=== PATIENT | male | born 1950 | race African-American/Black ===

== ENCOUNTER 2019-03-07 14:27 | Emergency (ER) | payer OTHER ==
[2019-03-07 14:40] VITALS: BP 143/98; PULSE 80; TEMP 98; BMI 28.6
[2019-03-07] MEDS ORDERED: DIPHTH,PERTUSS(ACELL),TET 0.5 ML DISP.SYRIN IM ONE ×2 (15:20→15:26)
[2019-03-07] MEDS ORDERED: IBUPROFEN 600 MG TABLET (FP) PO ONE ×2 (15:20→15:25)
--- NOTE | 2019-03-07 15:20 | PDOC ---
History of Present Illness - General Chief Complaint: Laceration Stated Complaint: LAC LEFT THUMB Time Seen by Provider: 03/07/19 14:45 History Source: Patient - History of Present Illness Initial Comments: 03/07/19 15:33 Chief complaint: Thumb injury Patient is a 68-year-old male without significant medical problems who states that he cut his right thumb with a saw while cutting tile. Patient does not know when his last tetanus was. GENERAL/CONSTITUTIONAL: No fever, weakness. dizziness HEAD, EYES, EARS, NOSE AND THROAT: No change in vision. No ear pain or discharge. No sore throat. CARDIOVASCULAR: No chest pain RESPIRATORY: No shortness of breath or cough GASTROINTESTINAL: No pain, nausea, vomiting, diarrhea or constipation GENITOURINARY: No dysuria MUSCULOSKELETAL: No neck or back pain SKIN: No rash, + thumb, right NEUROLOGIC: No headache, vertigo, loss of consciousness, or loss of sensation. GENERAL: The patient is awake, alert, and fully oriented, in no acute distress. HEAD: Normal with no signs of trauma. EYES: Pupils equal, round and reactive to light, sclera anicteric, conjunctiva clear. ENT: pharynx: no erythema, no exudate, uvula midline NECK: supple CHEST: clear, nontender, rr ABD: soft, nontender BACK: no tenderness or signs of injury EXTREMITIES: Right thumb with circular partial flap laceration, 2 cm on dorsum MCP able to fully flex and extend, neurovascular intact. Rest of extremities, normal range of motion, no edema. NEUROLOGICAL: Normal speech, normal gait. SKIN: Warm, Dry 03/07/19 15:50 Past History - Past Medical History Allergies/Adverse Reactions: Allergies Allergy/AdvReac Type Severity Reaction Status Date / Time No Known Allergies Allergy Verified 03/07/19 14:40 Home Medications: Ambulatory Orders Famotidine [Pepcid -] 20 mg PO BID #20 tablet 03/18/13 No Home Medications 0 dose .ROUTE UTDICT 03/18/13 Cephalexin [Keflex] 500 mg PO QID #28 capsule 03/07/19 COPD: No - Psycho Social/Smoking Cessation Hx Smoking Status: No Smoking History: Never smoked Number of Cigarettes Smoked Daily: 0 Hx Alcohol Use: No Substance Use Type: None *Physical Exam - Vital Signs Last Vital Signs Temp Pulse Resp BP Pulse Ox 98 F 80 18 143/98 100 03/07/19 14:35 03/07/19 14:35 03/07/19 14:35 03/07/19 14:35 03/07/19 14:35 Procedures - Laceration/Wound Repair Right Finger 1st digit Wound Length: to 2.5 cm Wound Explored: clean Wound's Depth, Shape: flap Irrigated w/ Saline: Yes Betadine Prep: Yes Anesthesia: 2% Lidocaine Wound Debrided: minimal Wound Repaired With: Sutures Suture Size/Type: 5:0 Number of Sutures: 8 Layer Closure: No Sterile Dressing Applied: Yes Splint Applied: Yes Sling Applied: No Medical Decision Making - Medical Decision Making 03/07/19 17:16 68-year-old male with no significant medical problems who was wearing a glove when he cut his right thumb on the dorsum MCP with a saw while cutting tile. Patient has flap injury, able to fully flex and extend, neurovascular intact. No obvious tendon injury. Patient will be sutured, get tetanus, given depth of injury give an joint will give antibiotics, Keflex. Patient was counseled to follow-up with hand surgeon. He will return here on Saturday for wound check if he is having issues following up with a hand surgeon by then Discussed issues, findings, results, applicable medications and treatments and follow-up. All these were understood and all questions were answered Discharge - Discharge Information Problems reviewed: Yes Clinical Impression/Diagnosis: Thumb laceration Qualifiers: Encounter type: initial encounter Damage to nail status: without damage Foreign body presence: without foreign body Laterality: right Qualified Code(s) : S61.011A - Laceration without foreign body of right thumb without damage to nail, initial encounter Condition: Stable Disposition: HOME - Admission No - Additional Discharge Information Prescriptions: Cephalexin [Keflex] 500 mg PO QID #28 capsule - Follow up/Referral Referrals: Bry Bower MD [Primary Care Provider] - Pacheco Vega MD [Staff Physician] - Jarocho Hughes MD [Staff Physician] - - Patient Discharge Instructions Additional Instructions: Leave bandage on, elevate, take Motrin or Tylenol for pain Take Keflex as directed to prevent infection. Return to the ER if fever, redness or swelling You can follow-up with 1 of the hand surgeons listed, you should follow-up with them this week, please call Joe morning and tell them you are in the emergency department and you need to get this rechecked to make sure there is no tendon damage. If you are having great difficulty securing an appointment by Saturday, come to the ER early in the day for a wound check and they can try to help you hand surgeon: Vladimir Ramon [address] [place] [address], For accurate GPS instructions, use [address] [place] [address] - Post Discharge Activity
== END 2019-03-07 17:12 | disposition home or self-care (01) ==
LOC: JERFT 14:27
PROC: 0JQJ0ZZ Repair Right Hand Subcutaneous Tissue and Fascia, Open Approach (ICD-10-PCS; principal; 2019-03-07)
PROC: 3E0234Z Introduction of Serum, Toxoid and Vaccine into Muscle, Percutaneous Approach (ICD-10-PCS; 2019-03-07)
DX: S61.011A Laceration without foreign body of right thumb without damage to nail, initial encounter (principal); W27.0XXA Contact with workbench tool, initial encounter; Y93.89 Activity, other specified; Y92.89 Other specified places as the place of occurrence of the external cause; Y99.8 Other external cause status
CPT/HCPCS: 12001-25; 73140-TC-RT-FY; 90471; 90715; 99281-25

== ENCOUNTER 2019-03-10 15:53 | Emergency (ER) | payer OTHER ==
[2019-03-10 16:08] VITALS: BP 154/96; PULSE 71; TEMP 98.2; BMI 28.3
--- NOTE | 2019-03-10 16:47 | PDOC ---
History of Present Illness - General Chief Complaint: Wound Stated Complaint: F/U Time Seen by Provider: 03/10/19 16:43 - History of Present Illness Initial Comments: 03/10/19 16:47 68-year-old male presents for wound check from a table saw injury sutures were placed 4 days ago he has no sequelae since suture placement. Past History - Past Medical History Allergies/Adverse Reactions: Allergies Allergy/AdvReac Type Severity Reaction Status Date / Time No Known Allergies Allergy Verified 03/10/19 16:06 Home Medications: Ambulatory Orders Famotidine [Pepcid -] 20 mg PO BID #20 tablet 03/18/13 No Home Medications 0 dose .ROUTE UTDICT 03/18/13 Cephalexin [Keflex] 500 mg PO QID #28 capsule 03/07/19 COPD: No - Immunization History Immunization Up to Date: Yes - Psycho Social/Smoking Cessation Hx Smoking Status: No Smoking History: Never smoked Number of Cigarettes Smoked Daily: 0 Information on smoking cessation initiated: No Hx Alcohol Use: No Drug/Substance Use Hx: No Substance Use Type: None Review of Systems - Review of Systems Constitutional: No: Fever *Physical Exam - Vital Signs Last Vital Signs Temp Pulse Resp BP Pulse Ox 98.2 F 71 16 154/96 98 03/10/19 16:06 03/10/19 16:06 03/10/19 16:06 03/10/19 16:06 03/10/19 16:06 - Physical Exam 03/10/19 16:47 Dressing is removed there is mild maceration about the skin in the area of the wound. Sutures are in place and the wound is clean and dry. No gross sensorimotor deficits neurovascular intact Medical Decision Making - Medical Decision Making 03/10/19 16:48 Discussed wound care with the patient. Soap and water keeping the area clean and dry and left open to air as much as possible not applying any ointments and following up with hand surgery. Covering the area with a dry sterile dressing such as a large Band-Aid when going out of the house. Discharge - Discharge Information Problems reviewed: Yes Clinical Impression/Diagnosis: Visit for wound check Condition: Stable Disposition: HOME - Admission No - Follow up/Referral Referrals: Avila George MD [Staff Physician] - - Patient Discharge Instructions Additional Instructions: Please keep the area clean and dry and left open to air as much as possible. You may wash the area with soap and water and leave it open to air. Return to the emergency room for worsening symptoms and without fail follow-up with hand surgery in 2 to 3 days for further evaluation and treatment options. Sutures should be removed no less than 14 days from placement. Return to the emergency room for any further issues. Again follow-up with hand surgery in 2 to 3 days without fail. If you leave the house you must cover the area with a dry sterile dressing such as a large Band-Aid. - Post Discharge Activity
== END 2019-03-10 16:57 | disposition home or self-care (01) ==
LOC: JERFT 15:53
DX: Z48.01 Encounter for change or removal of surgical wound dressing (principal)
CPT/HCPCS: 99281-25

== ENCOUNTER 2019-03-14 09:32 | Emergency (ER) | payer OTHER ==
[2019-03-14 09:50] VITALS: BP 155/90; PULSE 71; TEMP 97.5; BMI 28.6
--- NOTE | 2019-03-14 09:59 | PDOC ---
Suture Removal/Wound Check HPI - History of Present Illness Chief Complaint: Revisit,Wound Recheck Stated Complaint: WOUND CHECK RIGHT HAND LAC Time Seen by Provider: 03/14/19 09:36 History Source: Yes: Patient Date of Last ED visit: 03/10/19 - Previous ED Treatment Type of procedure performed on last visit: Yes: Laceration Repair - Onset of Previous Treatment Comment:: 03/14/19 09:54 68 M here for wound check of R thumb laceration. Pt suffered cut to dorsum of R thumb 1 week ago. Pt was instructed to f/u with hand surgery but mistakenly thought he was supposed to come to the ED for follow up. He has no complaints today. States the wound is healing well. Denies any pain, denies any redness/ swelling/drainage from wound. Has been taking his antibiotics as prescribed. Past History - Past Medical History Allergies/Adverse Reactions: Allergies Allergy/AdvReac Type Severity Reaction Status Date / Time No Known Allergies Allergy Verified 03/10/19 16:06 Home Medications: Ambulatory Orders Cephalexin [Keflex] 500 mg PO QID #28 capsule 03/07/19 COPD: No - Immunization History Immunization Up to Date: Yes - Psycho Social/Smoking Cessation Hx Smoking Status: No Smoking History: Never smoked Number of Cigarettes Smoked Daily: 0 Information on smoking cessation initiated: No Hx Alcohol Use: No Drug/Substance Use Hx: No Substance Use Type: None *Review of Systems - Review of Systems 03/14/19 09:56 "GENERAL/CONSTITUTIONAL: No fever or chills. No weakness. HEAD, EYES, EARS, NOSE AND THROAT: No change in vision. No ear pain or discharge. No sore throat. CARDIOVASCULAR: No chest pain, no shortness of breath, no loss of consciousness RESPIRATORY: No cough, wheezing, or hemoptysis. GASTROINTESTINAL: No nausea, vomiting, diarrhea or constipation. GENITOURINARY: No dysuria, frequency, or change in urination. MUSCULOSKELETAL: No joint or muscle swelling or pain. No neck or back pain. SKIN: No rash NEUROLOGIC: No vertigo, no change in strength/sensation. ENDOCRINE: No increased thirst. No abnormal weight change. HEMATOLOGIC/LYMPHATIC: No anemia, easy bleeding, or history of blood clots. ALLERGIC/IMMUNOLOGIC: No hives or skin allergy. *Physical Exam - Vital Signs Last Vital Signs Temp Pulse Resp BP Pulse Ox 97.5 F L 71 14 155/90 100 03/14/19 09:33 03/14/19 09:33 03/14/19 09:33 03/14/19 09:33 03/14/19 09:33 - Physical Exam 03/14/19 09:56 "GENERAL: Awake, alert, and fully oriented, in no acute distress. HEAD: No signs of trauma EYES: PERRLA, EOMI, sclera anicteric, conjunctiva clear ENT: Auricles normal inspection, hearing grossly normal, nares patent, oropharynx clear without exudates. Moist mucosa NECK: Nontender, no stepoffs, Normal ROM, supple, no lymphadenopathy, JVD, or masses LUNGS: Breath sounds equal, clear to auscultation bilaterally. No wheezes, and no crackles HEART: Regular rate and rhythm, normal S1 and S2, no murmurs, rubs or gallops ABDOMEN: Soft, nontender, normoactive bowel sounds. No guarding, no rebound. No masses EXTREMITIES: + R thumb with well healed laceration, no erythema/induration/ fluctuance/drainage, flexor tendons intact, + diminished strength with extension NEUROLOGICAL: Cranial nerves II through XII intact. 5/5 strength and sensation in all extremities, Normal speech, normal gait, normal cerebellar function SKIN: Warm, Dry, normal turgor, no rashes or lesions noted. Medical Decision Making - Medical Decision Making 03/14/19 09:57 68 M here for wound check. Laceration is well healed. However, pt noted to have limitation in extension of his thumb. This may be due to residual pain from the laceration. However, cannot rule out tendon injury. - Discussed with pt necessity of hand surgery f/u, which he states he has an appointment for in the coming week - Pt placed in finger splint Pt is well appearing, with normal vitals. Clinically stable for DC at this time. I discussed the physical exam findings, ancillary test results and final diagnoses with the patient. I answered all of the patient's questions. The patient was satisfied with the care received and felt comfortable with the discharge plan and treatment plan. The patient agrees to follow up with the primary care physician within 24-72 hours. Discharge - Discharge Information Problems reviewed: Yes Clinical Impression/Diagnosis: Visit for wound check Condition: Stable Disposition: HOME - Follow up/Referral Referrals: Pacheco Vega MD [Staff Physician] - Jarocho Hughes MD [Staff Physician] - - Patient Discharge Instructions Patient Printed Discharge Instructions: DI for Finger Extensor Tendon Injury Additional Instructions: You MUST see a hand surgeon as soon as possible. There is a possibility that one of the tendons in your hand was injured and may need surgical repair. Call the number provided to make an appointment if you have not already. If you experience any redness, swelling, pain, fevers, or any other concerning symptoms, return to the ER immediately. - Post Discharge Activity
== END 2019-03-14 10:29 | disposition home or self-care (01) ==
LOC: FER 09:32
PROC: 2W3GX1Z Immobilization of Right Thumb using Splint (ICD-10-PCS; principal; 2019-03-14)
DX: Z48.02 Encounter for removal of sutures (principal)
CPT/HCPCS: 99281-25